=== PATIENT | female | born 1950 | race Caucasian/White ===

== ENCOUNTER 2019-06-13 19:42 | Inpatient (IN) | payer OTHER, MEDICARE ==
[2019-06-13 20:04] VITALS: BMI 23.6
--- NOTE | 2019-06-13 20:04 | PDOC ---
History of Present Illness - General Chief Complaint: Lightheaded Stated Complaint: DIZZINESS Time Seen by Provider: 06/13/19 20:03 History Source: Patient Exam Limitations: No Limitations - History of Present Illness Initial Comments: 06/13/19 20:06 Flores Haji is a 68yF with PMHx of Alzheimers and hyperlipidemia presenting with lightheadedness. AT 530p today, while sitting in chair and watching TV, she suddenly felt lightheaded and nauseous. Went to bathroom, did not vomit. No fall, LOC, head trauma. Never has felt like this before. Currently in ED, she feels back to normal. Denies lightheadedness, nausea, headache, SOB, chest/AB pain, urinary or bowel mvmt changes. Past History - Past Medical History Allergies/Adverse Reactions: Allergies Allergy/AdvReac Type Severity Reaction Status Date / Time No Known Allergies Allergy Verified 06/13/19 20:13 Home Medications: Ambulatory Orders Donepezil HCl [Aricept -] 10 mg PO HS 06/13/19 Simvastatin [Zocor -] 40 mg PO HS 06/13/19 Review of Systems - Review of Systems Able to Perform ROS?: Yes Is the patient limited Yakut proficient: No Constitutional: No: Chills, Fever HEENTM: No: Eye Pain, Nose Pain, Nose Congestion, Throat Pain Respiratory: No: Cough, Shortness of Breath Cardiac (ROS): No: Chest Pain, Edema, Palpitations, Syncope ABD/GI: No: Abdominal Distended, Constipated, Diarrhea, Nausea, Vomiting : No: Burning, Dysuria, Discharge, Flank Pain, Hematuria, Incontinence Musculoskeletal: No: Back Pain, Joint Pain, Muscle Pain, Neck Pain Integumentary: No: Bruising, Erythema, Flushing, Lesions Neurological: No: Headache, Numbness, Seizure, Tingling, Tremors Psychiatric: No: Anxiety, Depression Endocrine: No: Excessive Sweating, Flushing, Intolerance to Cold, Intolerance to Heat Hematologic/Lymphatic: No: Anemia, Blood Clots, Easy Bleeding *Physical Exam - Physical Exam General Appearance: Yes: Nourished, Appropriately Dressed. No: Apparent Distress HEENT: positive: EOMI, YESSI, Normal Voice, Hearing Grossly Normal. negative: Pale Conjunctivae, Excessive drooling Neck: positive: Trachea midline, Normal Thyroid, Supple, Other (full neck ROM). negative: Tender, Rigid Respiratory/Chest: positive: Lungs Clear, Normal Breath Sounds. negative: Chest Tender, Respiratory Distress, Crackles, Rales, Rhonchi, Stridor, Wheezing Cardiovascular: positive: Regular Rhythm, Regular Rate, S1, S2. negative: Edema , Murmur Gastrointestinal/Abdominal: positive: Normal Bowel Sounds, Flat, Soft. negative : Tender, Organomegaly, Distended, Guarding, Rebound, Mass Neurologic: positive: oil mixer II-XII NML intact, Fully Oriented, Alert, Normal Mood/ Affect, Normal Response, Motor Strength 5/5, Responsive. negative: Facial Droop , Numbness, Sensory Deficit, Disoriented, Depressed Affect Medical Decision Making - Medical Decision Making 06/13/19 20:39 CBC CMP trop CXR EKG UA head CT Flores Detz is a 68yF with PMHx of Alzheimers and hyperlipidemia presenting with lightheadedness. Consider cardiac causes based on advanced age, HLD risk factor. Unlikely stroke/TIA based on normal neuro exam. Plan to admit for syncope workup in setting of advanced age, dementia pending head CT, labs. Signed out to Dr. Anderson Johns. *DC/Admit/Observation/Transfer Diagnosis at time of Disposition: Lightheadedness - Discharge Dispostion Condition at time of disposition: Stable - Referrals - Patient Instructions - Post Discharge Activity
[2019-06-13 22:40] LABS: BASO % 0.4 % (0-2.0); EOS % 0.3 % (0-4.5); HEMATOCRIT 41.4 % (32.4-45.2); HEMOGLOBIN 14.1 GM/dL (10.7-15.3); LYMPH % 12.7 % (8-40); MCH 30.5 pg (25.7-33.7); MCHC 34.1 g/dl (32.0-36.0); MEAN CELL VOLUME 89.4 fl (80-96); MEAN PLT VOLUME 8.7 fl (7.5-11.1); MONO % 3.1 % (3.8-10.2); NEUT % 83.5 % (42.8-82.8); PLATELET COUNT 208 K/MM3 (134-434); RBC 4.64 M/mm3 (3.60-5.2); RDW 12.7 % (11.6-15.6); WHITE BLOOD COUNT 6.4 K/mm3 (4.0-10.0)
[2019-06-13 23:01] LABS: ALBUMIN 3.8 g/dl (3.4-5.0); BILIRUBIN,TOTAL 0.5 mg/dL (0.2-1); BLOOD UREA NITROGEN 16.1 mg/dL (7-18); CALCIUM 9.2 mg/dL (8.5-10.1); CREATININE 0.6 mg/dL (0.55-1.3); POTASSIUM 3.8 mmol/L (3.5-5.1); TOT PROT 7.2 g/dl (6.4-8.2)
--- NOTE | 2019-06-13 23:14 | PDOC ---
*Physical Exam - Vital Signs Last Vital Signs Temp Pulse Resp BP Pulse Ox 96.9 F L 68 18 125/81 99 06/13/19 20:00 06/13/19 20:00 06/13/19 20:00 06/13/19 20:00 06/13/19 20:00 - Physical Exam Comments: 06/13/19 23:13 GENERAL: Awake, alert, and fully oriented, in no acute distress HEAD: No signs of trauma, normocephalic, atraumatic EYES: PERRLA, EOMI, sclera anicteric, conjunctiva clear ENT: Auricles normal inspection, hearing grossly normal, nares patent, oropharynx clear without exudates. Moist mucosa NECK: Normal ROM, supple, no lymphadenopathy, JVD, or masses LUNGS: No distress, speaks full sentences, clear to auscultation bilaterally HEART: Regular rate and rhythm, normal S1 and S2, no murmurs, rubs or gallops, peripheral pulses normal and equal bilaterally. ABDOMEN: Soft, nontender, normoactive bowel sounds. No guarding, no rebound. No masses EXTREMITIES : Normal inspection, Normal range of motion, no edema. No clubbing or cyanosis. NEUROLOGICAL: Cranial nerves II through XII grossly intact. Normal speech, normal gait, no focal sensorimotor deficits SKIN: Warm, Dry, normal turgor, no rashes or lesions noted Heart Score/ECG Review - History History: Slightly suspicious - Electrocardiogram EKG: Normal - Age Age: >/= 65 - Risk Factors Risk Factors Heart Score: Yes Hx Hypercholesterolemia, Yes Positive family hx of cardiac disease Based on the list above the patient has:: >/=3 risk factors or Hx atherosclerotic disease - Troponin Troponin: </= normal limit - Score Heart Score - Total: 4 ED Treatment Course - LABORATORY CBC & Chemistry Diagram: 06/13/19 22:20 06/13/19 22:20 - ADDITIONAL ORDERS Additional order review: Laboratory Results 06/13/19 06/13/19 22:20 22:20 Sodium 142 Potassium 3.8 Chloride 106 Carbon Dioxide 29 Anion Gap 7 L BUN 16.1 Creatinine 0.6 Est GFR (CKD-EPI)AfAm 107.79 Est GFR (CKD-EPI)NonAf 93.00 Random Glucose 120 H Calcium 9.2 Total Bilirubin 0.5 AST 19 ALT 20 Alkaline Phosphatase 78 Creatine Kinase 68 Troponin I < 0.02 Total Protein 7.2 Albumin 3.8 06/13/19 22:20 RBC 4.64 MCV 89.4 MCHC 34.1 RDW 12.7 MPV 8.7 Neutrophils % 83.5 H Lymphocytes % 12.7 Monocytes % 3.1 L Eosinophils % 0.3 Basophils % 0.4 - RADIOLOGY Radiology Studies Ordered: Category Date Time Status CERVICAL SPINE CT W/O CONTR [CT] Stat CT Scan 06/13/19 22:51 Ordered 06/14/19 02:08 No acute fracture or malalignment. Minimal spondylosis. Straightening of cervical lordosis, possibly due to positioning or muscle spasm. CTH: No acute brain parenchymal abnormality. No hemorrhage or acute territorial infarct. 4 mm dural calcification or incidental calcified meningioma overlying left parietal lobe. Age-related involutional changes. Clear visualized paranasal sinuses. Visualized mastoid air cells clear. 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 Possible LOC, collpase. Patient poor historian. Endorsed by Dr. Deal. Vitals wnl, AF, A&Ox3. Physical exam unremarkable. CTH r/o hemmorhage, hematoma, fracture. Pending CT-spine. Pending labs, UA. Ed Course: 06/13/19 23:14 EKG: NSR with absent DORIS, STD. Nml interval duration and axis. Nml R wave progression. Absent Q waves. 06/14/19 01:43 Laboratory Tests 06/13/19 06/13/19 06/13/19 00:50 22:20 22:20 WBC 6.4 Hgb 14.1 Hct 41.4 Plt Count 208 Sodium Potassium BUN Creatinine Random Glucose Troponin I < 0.02 Urine Color Yellow Urine Appearance Clear Urine Nitrite Negative Urine Urobilinogen 0.2 Ur Leukocyte Esterase 1+ H Urine WBC (Auto) 4 06/13/19 22:20 WBC Hgb Hct Plt Count Sodium 142 Potassium 3.8 BUN 16.1 Creatinine 0.6 Random Glucose 120 H Troponin I Urine Color Urine Appearance Urine Nitrite Urine Urobilinogen Ur Leukocyte Esterase Urine WBC (Auto) 06/14/19 02:00 CTH, C-spine: No acute findings 06/14/19 02:[address] Grayson. Admitted tele *DC/Admit/Observation/Transfer Diagnosis at time of Disposition: Lightheadedness, Syncope and collapse - Discharge Dispostion Condition at time of disposition: Stable Decision to Admit order: Yes - Referrals - Patient Instructions - Post Discharge Activity
--- NOTE | 2019-06-14 01:06 | PDOC ---
Documentation entered by Rafaela Valerio SCRIBE, acting as scribe for Christi Tompkins DO. Christi Tompkins DO: This documentation has been prepared by the Iman jean-baptiste Adrianna, SCRIBE, under my direction and personally reviewed by me in its entirety. I confirm that the documentation accurately reflects all work, treatment, procedures, and medical decision making performed by me. Attending Attestation - Resident Resident Name: SarathChung - ED Attending Attestation I have performed the following: I have examined & evaluated the patient, The case was reviewed & discussed with the resident, I agree w/resident's findings & plan - HPI HPI: The patient is a 68 year old female, with a significant PMH of Alzheimers and HLD, who presents to the ED for evaluation of lightheadedness for a few hours. Patient was sitting watching TV 3 hours ago, when she began to experience sudden onset lightheadedness and nausea. Patient cannot recall the event, and is unsure if she lost consciousness. Unclear history as patient is a poor historian. She endorses left-sided head pain while in the ED. Allergies: NKA, NKDA Surgical History: None reported Social History: Alzheimers. Denies EtOH, tobacco, or illicit drug use - Physicial Exam PE: GENERAL: Awake, in no acute distress HEAD: No signs of trauma EYES: ENT:clear without exudates. Moist mucosa NECK: Normal ROM, LUNGS:. Normal work of breathing. HEART: Regular rate and rhythm, ABDOMEN: Soft, nondistended CHEST WALL: BACK: No midline tenderness. EXTREMITIES:. No erythema, or tenderness NEUROLOGICAL: Alert, SKIN: Warm, Dry - Medical Decision Making 06/14/19 01:05 68-year-old female status post probable syncopal episode Plan for CT scan of the brain, troponin EKG and observation admission to hospitalist service
[2019-06-14 01:07] LABS: EPI CELLS 0.7 /HPF (0-5/HPF); HYALINE CASTS 0 /lpf (0-8); URINE APPEARANCE CLEAR; URINE BACTERIA 50.1 /hpf (NEGATIVE); URINE BILIRUBIN NEGATIVE (NEGATIVE); URINE COLOR YELLOW; URINE GLUCOSE (UA) NEGATIVE (NEGATIVE); URINE KETONE NEGATIVE (NEGATIVE); URINE LEUK ESTERASE 1+ (NEGATIVE); URINE NITRITE NEGATIVE (NEGATIVE); URINE PROTEIN NEGATIVE (NEGATIVE); URINE RBC 3 /hpf (0-4); URINE UROBILINOGEN 0.2 mg/dL (0.2-1.0); URINE WBC 4 /hpf (0-5)
--- NOTE | 2019-06-14 02:14 | PN ---
Teaching Attending Note Name of Resident: Althea Lara ATTENDING PHYSICIAN STATEMENT I saw and evaluated the patient. I reviewed the resident's note and discussed the case with the resident. I agree with the resident's findings and plan as documented. SUBJECTIVE: Patient is a 68 year old woman with PMH of Alzheimer's dementia and Hyperlipidemia presenting with lightheadedness. At 5:30 pm today while sitting in chair and watching TV, she suddenly felt lightheaded and nauseous. Went to bathroom, did not vomit. No fall, loss of consciousness or head trauma. Never has felt like this before. Currently in ER, she feels back to normal. Denies lightheadedness, nausea, headache, SOB, chest pain, abdominal pain, changes in urinary or bowel function. OBJECTIVE: Alert and not orthostatic Vital Signs Period Temp Pulse Resp BP Sys/Hall Pulse Ox Last 24 Hr 96.9 F-97.4 F 68-69 18 125-135/81-86 99-100 HEENT: No Jaundice, eye redness or discharge, PERRLA, EOMI. Normocephalic, atraumatic. External ears are normal and hearing is grossly intact. No nasal discharge. Neck: Supple, nontender. No palpable adenopathy or thyromegaly. No JVD Chest: Good effort. Clear to auscultation and percussion. Heart: Regular. No S3, rub or murmur Abdomen: Not distended, soft, nontender and no HSM. No rebound or guarding. Normal bowel sounds. Ext: Peripheral pulses intact. No leg edema. Skin: Warm and dry. No petechiae, rash or ecchymosis. Neuro: Alert. Oriented x3. CN 2-12 grossly intact. Sensation grossly intact in all four extremities and DTR are symmetric. Psych: Appropriate mood and affect. Good insight. Home Medications Medication Instructions Recorded Donepezil HCl [Aricept -] 10 mg PO HS 06/13/19 Simvastatin [Zocor -] 40 mg PO HS 06/13/19 Abnormal Lab Results 06/13/19 06/13/19 06/13/19 00:50 22:20 22:20 Neutrophils % 83.5 H Monocytes % 3.1 L Anion Gap 7 L Random Glucose 120 H Ur Specific [place] 1.008 L Ur Leukocyte Esterase 1+ H ASSESSMENT AND PLAN: 1. Syncope - Details surrounding the episode are uncertain, but it is unclear if he lost consciousness. Etiology unclear. No acute pathology on noncontrast head CT scan, C-spine CT or CXR. No significant changes on EKG. Admit to telemetry, get brain MRI, HbA1c, lumbosacral MRI, carotid doppler, ECHO and consult Neurology. Will do neurochecks and implement seizure, fall and aspiration precautions. 2. DVT prophylaxis - Lovenox 40 mg SQ q 24 hours. 3. Advance directives - Full code
[2019-06-14] MEDS: SODIUM CHLORIDE 1,000 ML IV SCH (03:05)
--- NOTE | 2019-06-14 04:52 | HP ---
CHIEF COMPLAINT: syncope PCP: Lucius HISTORY OF PRESENT ILLNESS: Ms. Haji is a 68yo female with Alzheimer's diagnosed 3 months ago and HLD presents with unwitnessed syncope. She reports feeling nauseous while sitting and watching TV, got up to go to the bathroom, and remembers being on the floor. She denies prodromal symptoms. She said her son called her and she happened to have her phone with her, so she was able to inform him of the incident. She is unsure how long she was on the floor. She denies head injury, headache, chest pain, and SOB. She reports no current dizziness and nausea. 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 Family History: none Allergies No Known Allergies Allergy (Verified 06/13/19 20:13) HOME MEDICATIONS: Home Medications Medication Instructions Recorded Donepezil HCl [Aricept -] 10 mg PO HS 06/13/19 Simvastatin [Zocor -] 40 mg PO HS 06/13/19 REVIEW OF SYSTEMS CONSTITUTIONAL: Absent: fever, chills, diaphoresis, generalized weakness, loss of appetite HEENT: Absent: rhinorrhea, nasal congestion, throat pain, ear pain CARDIOVASCULAR: Present: syncope Absent: chest pain, palpitations, irregular heart rate, peripheral edema RESPIRATORY: Absent: cough, shortness of breath GASTROINTESTINAL: Absent: abdominal pain, abdominal distension, nausea, vomiting GENITOURINARY: Absent: dysuria MUSCULOSKELETAL: Absent: myalgia SKIN: Absent: rash, itching, pallor HEMATOLOGIC/IMMUNOLOGIC: Absent: easy bleeding, easy bruising, lymphadenopathy, frequent infections ENDOCRINE: Absent: unexplained weight gain, unexplained weight loss, heat intolerance, cold intolerance NEUROLOGIC: Absent: headache, focal weakness or paresthesias, dizziness, unsteady gait, seizure, mental status changes, bladder or bowel incontinence PSYCHIATRIC: Absent: anxiety, depression, suicidal or homicidal ideation, hallucinations. PHYSICAL EXAMINATION Vital Signs - 24 hr 06/13/19 06/14/19 06/14/19 20:00 02:45 03:53 Temperature 96.9 F L 97.7 F 98 F Pulse Rate 69 74 Pulse Rate [ 62 Apical] Pulse Rate [ 68 Right Radial] Respiratory 18 15 20 Rate Blood Pressure 135/86 112/70 Blood Pressure 125/81 134/79 [Right Arm] O2 Sat by Pulse 99 100 98 Oximetry (%) 06/14/19 04:16 Temperature 97.8 F Pulse Rate 78 Pulse Rate [ Apical] Pulse Rate [ Right Radial] Respiratory 20 Rate Blood Pressure 112/70 Blood Pressure [Right Arm] O2 Sat by Pulse Oximetry (%) GENERAL: Awake, alert, and fully oriented, in no acute distress. Intermittent confusion with questions. HEAD: Normal with no signs of trauma. EYES: Pupils equal, round and reactive to light, extraocular movements intact, sclera anicteric, conjunctiva clear. No lid lag. EARS, NOSE, THROAT: Ears normal, nares patent. Moist mucous membranes. NECK: Normal range of motion, supple without lymphadenopathy, JVD, or masses. LUNGS: Breath sounds equal, clear to auscultation bilaterally. No wheezes, and no crackles. No accessory muscle use. HEART: Regular rate and rhythm, normal S1 and S2 without murmur, rub or gallop. ABDOMEN: Soft, nontender, not distended, normoactive bowel sounds, no guarding, no rebound, no masses. No hepatomegaly or splenomegaly. MUSCULOSKELETAL: Normal range of motion at all joints. No bony deformities or tenderness. UPPER EXTREMITIES: 2+ pulses, warm, well-perfused. No cyanosis. No clubbing. No peripheral edema. LOWER EXTREMITIES: 2+ pulses, warm, well-perfused. No calf tenderness. No peripheral edema. NEUROLOGICAL: Cranial nerves II-XII intact. Normal speech. Normal gait. PSYCHIATRIC: Cooperative. Good eye contact. Appropriate mood and affect. SKIN: Warm, dry, normal turgor, no rashes or lesions noted, normal capillary refill. Laboratory Results - last 24 hr 06/13/19 06/13/19 06/13/19 00:50 22:20 22:20 WBC 6.4 RBC 4.64 Hgb 14.1 Hct 41.4 MCV 89.4 MCH 30.5 MCHC 34.1 RDW 12.7 Plt Count 208 MPV 8.7 Absolute Neuts (auto) 5.4 Neutrophils % 83.5 H Lymphocytes % 12.7 Monocytes % 3.1 L Eosinophils % 0.3 Basophils % 0.4 Nucleated RBC % 0 Sodium Potassium Chloride Carbon Dioxide Anion Gap BUN Creatinine Est GFR (CKD-EPI)AfAm Est GFR (CKD-EPI)NonAf Random Glucose Calcium Total Bilirubin AST ALT Alkaline Phosphatase Creatine Kinase 68 Troponin I < 0.02 Total Protein Albumin Urine Color Yellow Urine Appearance Clear Urine pH 8.0 Ur Specific [place] 1.008 L Urine Protein Negative Urine Glucose (UA) Negative Urine Ketones Negative Urine Blood Negative Urine Nitrite Negative Urine Bilirubin Negative Urine Urobilinogen 0.2 Ur Leukocyte Esterase 1+ H Urine WBC (Auto) 4 Urine RBC (Auto) 3 Urine Casts (Auto) 0 U Epithel Cells (Auto) 0.7 Urine Bacteria (Auto) 50.1 06/13/19 22:20 WBC RBC Hgb Hct MCV MCH MCHC RDW Plt Count MPV Absolute Neuts (auto) Neutrophils % Lymphocytes % Monocytes % Eosinophils % Basophils % Nucleated RBC % Sodium 142 Potassium 3.8 Chloride 106 Carbon Dioxide 29 Anion Gap 7 L BUN 16.1 Creatinine 0.6 Est GFR (CKD-EPI)AfAm 107.79 Est GFR (CKD-EPI)NonAf 93.00 Random Glucose 120 H Calcium 9.2 Total Bilirubin 0.5 AST 19 ALT 20 Alkaline Phosphatase 78 Creatine Kinase Troponin I Total Protein 7.2 Albumin 3.8 Urine Color Urine Appearance Urine pH Ur Specific [place] Urine Protein Urine Glucose (UA) Urine Ketones Urine Blood Urine Nitrite Urine Bilirubin Urine Urobilinogen Ur Leukocyte Esterase Urine WBC (Auto) Urine RBC (Auto) Urine Casts (Auto) U Epithel Cells (Auto) Urine Bacteria (Auto) ASSESSMENT/PLAN: The patient is a 68yo female with newly diagnosed Alzheimer's disease as well as HLD who presents after an unwitnessed syncope. She reports her dizziness and nausea have resolved. 1. syncope- Event was unwitnessed. CBC and CMP are negative. Pt is afebrile and orthostatic negative. CT head was negative for acute processes. Trop x2 negative. UA showed +1 leuk esterase only. -HbA1C- BG isolated elevation at 120 -TSH -MRI brain -echo -carotid doppler -NS 50mL/hr -consider EEG -consider neuro consult 2. Alzheimer's 3. HLD DVT ppe Lovenox 40mg Q daily FEN NS 50mL/hr regular diet monitor electrolytes Visit type - Emergency Visit Emergency Visit: Yes ED Registration Date: 06/13/19 Care time: The patient presented to the Emergency Department on the above date and was hospitalized for further evaluation of their emergent condition. - New Patient This patient is new to me today: Yes Date on this admission: 06/14/19 - Critical Care Critical Care patient: No ATTENDING PHYSICIAN STATEMENT I saw and evaluated the patient. I reviewed the resident's note and discussed the case with the resident. I agree with the resident's findings and plan as documented. SUBJECTIVE: OBJECTIVE: ASSESSMENT AND PLAN:
[2019-06-14 06:50] LABS: BASO % 0.4 % (0-2.0); EOS % 1.4 % (0-4.5); HEMATOCRIT 38.1 % (32.4-45.2); HEMOGLOBIN 13.3 GM/dL (10.7-15.3); MCH 30.9 pg (25.7-33.7); MCHC 34.9 g/dl (32.0-36.0); MEAN CELL VOLUME 88.5 fl (80-96); MEAN PLT VOLUME 8.6 fl (7.5-11.1); MONO % 8.9 % (3.8-10.2); NEUT % 63.3 % (42.8-82.8); PLATELET COUNT 203 K/MM3 (134-434); RBC 4.31 M/mm3 (3.60-5.2); RDW 12.4 % (11.6-15.6); WHITE BLOOD COUNT 5.5 K/mm3 (4.0-10.0)
[2019-06-14 07:18] LABS: ALBUMIN 3.4 g/dl (3.4-5.0); ALK PHOS 68 U/L (45-117); ANION GAP 5 MMOL/L (8-16); BILIRUBIN,TOTAL 0.3 mg/dL (0.2-1); CALCIUM 8.8 mg/dL (8.5-10.1); CHLORIDE 107 mmol/L (98-107); CO2 30 mmol/L (21-32); CREATININE 0.6 mg/dL (0.55-1.3); GLUCOSE,RANDOM 85 mg/dL (74-106); MAGNESIUM 2.4 mg/dL (1.8-2.4); POTASSIUM 3.9 mmol/L (3.5-5.1); SGOT/AST 16 U/L (15-37); SGPT/ALT 19 U/L (13-61); SODIUM 141 mmol/L (136-145); TOT PROT 6.3 g/dl (6.4-8.2)
--- NOTE | 2019-06-14 08:22 | EKG ---
Test Reason : Blood Pressure : / mmHG Vent. Rate : 067 BPM Atrial Rate : 067 BPM P-R Int : 138 ms QRS Dur : 084 ms QT Int : 414 ms P-R-T Axes : 068 060 055 degrees QTc Int : 437 ms NORMAL SINUS RHYTHM NORMAL ECG NO PREVIOUS ECGS AVAILABLE Confirmed by LYLA IRVIN, DARIO ([id number]) on 06/14/2019 8:21:58 AM Referred By: Confirmed By:DARIO ARITA MD
[2019-06-14] MEDS: ENOXAPARIN NA (PORCINE) 40 MG/0.4 ML DISP.SYRIN SQ SCH (10:37)
--- NOTE | 2019-06-14 12:43 | ECHO ---
Name: DETZ, LIV Exam:Adult Echocardiogram Study Date: 06/14/2019 10:42 AM Age: 68 yrs Reason For Study: possible syncope Height: 59 in Weight: 117 lb BSA: 1.5 m2 MMode/2D Measurements & Calculations IVSd: 0.85 cm Ao root diam: 2.6 cm LVIDd: 3.4 cm LA dimension: 2.3 cm LVIDs: 2.1 cm LVPWd: 0.96 cm LVPWs: 1.3 cm EDV(Teich): 46.9 ml ESV(Teich): 14.9 ml LVOT diam: 1.8 cm Doppler Measurements & Calculations MV E max bernabe: 70.1 cm/sec Ao V2 max: 142.7 cm/sec MV A max bernabe: 89.3 cm/sec Ao max P.2 mmHg MV E/A: 0.78 Ao V2 mean: 92.6 cm/sec MV dec time: 0.21 sec Ao mean P.1 mmHg Ao V2 VTI: 30.8 cm KRISTEN(I,D): 1.7 cm2 KRISTEN(V,D): 1.9 cm2 LV V1 max P.5 mmHg SV(LVOT): 51.0 ml LV V1 mean P.1 mmHg LV V1 max: 106.1 cm/sec LV V1 mean: 67.5 cm/sec LV V1 VTI: 20.4 cm TR max bernabe: 210.7 cm/sec PA V2 max: 91.2 cm/sec TR max P.8 mmHg PA max P.3 mmHg Med Peak E' Bernabe: 7.1 cm/sec Med E/e': 9.8 Lat Peak E' Bernabe: 8.2 cm/sec Lat E/e': 8.5 Procedure A two-dimensional transthoracic echocardiogram with color flow and Doppler was performed. Left Ventricle The left ventricular size, thickness and function are normal. The left ventricular ejection fraction is normal. The transmitral spectral Doppler flow pattern is normal for age. The left ventricular wall mo tion is normal. Right Ventricle The right ventricle is normal in size and function. Atria Normal left and right atrial size and function. Mitral Valve There is mild mitral valve thickening. There is no mitral valve stenosis. There is trace to mild mitr al regurgitation. Tricuspid Valve The tricuspid valve is normal in structure and function. There is no tricuspid stenosis. There is mil d to moderate tricuspid regurgitation. Right ventricular systolic pressure is normal. Aortic Valve The aortic valve is normal in structure and function. No hemodynamically significant valvular aortic stenosis. No aortic regurgitation is present. Pulmonic Valve The pulmonic valve is not well visualized. There is no pulmonic valvular stenosis. Mild to moderate p ulmonic valvular regurgitation. Great Vessels The aortic root is normal size. Pericardium/Pleura There is no pericardial effusion. Interpretation Summary There is mild to moderate tricuspid regurgitation. Right ventricular systolic pressure is normal. The transmitral spectral Doppler flow pattern is normal for age. The left ventricular size, thickness and function are normal The left ventricular ejection fraction is normal. The left ventricular wall motion is normal. MD Asa Remy 06/14/2019 12:42 PM
--- NOTE | 2019-06-14 13:09 | EKG ---
Test Reason : Blood Pressure : / mmHG Vent. Rate : 065 BPM Atrial Rate : 065 BPM P-R Int : 138 ms QRS Dur : 084 ms QT Int : 430 ms P-R-T Axes : 070 062 056 degrees QTc Int : 447 ms NORMAL SINUS RHYTHM NORMAL ECG WHEN COMPARED WITH ECG OF 13-JUN-2019 21:59, NO SIGNIFICANT CHANGE WAS FOUND Confirmed by DARIO ARITA MD ([id number]) on 06/14/2019 1:08:24 PM Referred By: Confirmed By:DARIO ARITA MD
--- NOTE | 2019-06-14 13:55 | PN ---
Physical Exam: SUBJECTIVE: Patient seen and examined by the bedside. She is well oriented and cooperative. OBJECTIVE: Vital Signs Period Temp Pulse Resp BP Sys/Hall Pulse Ox Last 24 Hr 96.9 F-98 F 62-78 15-20 112-135/70-86 98-100 GENERAL: The patient is awake, alert, and fully oriented, in no acute distress. HEAD: Normal with no signs of trauma. EYES: PERRL, extraocular movements intact, sclera anicteric, conjunctiva clear. No ptosis. NECK: Trachea midline, full range of motion, supple. LUNGS: Breath sounds equal, clear to auscultation bilaterally, no wheezes, no crackles, no accessory muscle use. HEART: Regular rate and rhythm, S1, S2 without murmur, rub or gallop. ABDOMEN: Soft, nontender, nondistended, normoactive bowel sounds, no guarding, no rebound, no hepatosplenomegaly, no masses. EXTREMITIES: 2+ pulses, warm, well-perfused, no edema. NEUROLOGICAL:Normal speech, gait not observed. PSYCH: Normal mood, normal affect. SKIN: Warm, dry, normal turgor, no rashes or lesions noted Laboratory Results - last 24 hr 06/13/19 06/13/19 06/13/19 00:50 22:20 22:20 WBC 6.4 RBC 4.64 Hgb 14.1 Hct 41.4 MCV 89.4 MCH 30.5 MCHC 34.1 RDW 12.7 Plt Count 208 MPV 8.7 Absolute Neuts (auto) 5.4 Neutrophils % 83.5 H Lymphocytes % 12.7 Monocytes % 3.1 L Eosinophils % 0.3 Basophils % 0.4 Nucleated RBC % 0 Sodium Potassium Chloride Carbon Dioxide Anion Gap BUN Creatinine Est GFR (CKD-EPI)AfAm Est GFR (CKD-EPI)NonAf Random Glucose Calcium Magnesium Total Bilirubin AST ALT Alkaline Phosphatase Creatine Kinase 68 Troponin I < 0.02 Total Protein Albumin TSH Urine Color Yellow Urine Appearance Clear Urine pH 8.0 Ur Specific Hope 1.008 L Urine Protein Negative Urine Glucose (UA) Negative Urine Ketones Negative Urine Blood Negative Urine Nitrite Negative Urine Bilirubin Negative Urine Urobilinogen 0.2 Ur Leukocyte Esterase 1+ H Urine WBC (Auto) 4 Urine RBC (Auto) 3 Urine Casts (Auto) 0 U Epithel Cells (Auto) 0.7 Urine Bacteria (Auto) 50.1 06/13/19 06/14/19 06/14/19 22:20 06:00 06:00 WBC 5.5 RBC 4.31 Hgb 13.3 Hct 38.1 MCV 88.5 MCH 30.9 MCHC 34.9 RDW 12.4 Plt Count 203 MPV 8.6 Absolute Neuts (auto) 3.5 Neutrophils % 63.3 D Lymphocytes % 26.0 D Monocytes % 8.9 D Eosinophils % 1.4 D Basophils % 0.4 Nucleated RBC % 0 Sodium 142 141 Potassium 3.8 3.9 Chloride 106 107 Carbon Dioxide 29 30 Anion Gap 7 L 5 L BUN 16.1 13.0 Creatinine 0.6 0.6 Est GFR (CKD-EPI)AfAm 107.79 107.79 Est GFR (CKD-EPI)NonAf 93.00 93.00 Random Glucose 120 H 85 Calcium 9.2 8.8 Magnesium 2.4 Total Bilirubin 0.5 0.3 AST 19 16 ALT 20 19 Alkaline Phosphatase 78 68 Creatine Kinase 60 Troponin I < 0.02 Total Protein 7.2 6.3 L Albumin 3.8 3.4 TSH 0.77 Urine Color Urine Appearance Urine pH Ur Specific Hope Urine Protein Urine Glucose (UA) Urine Ketones Urine Blood Urine Nitrite Urine Bilirubin Urine Urobilinogen Ur Leukocyte Esterase Urine WBC (Auto) Urine RBC (Auto) Urine Casts (Auto) U Epithel Cells (Auto) Urine Bacteria (Auto) Active Medications Generic Name Dose Route Start Last Admin Trade Name Freq PRN Reason Stop Dose Admin Enoxaparin Sodium 40 mg 06/14/19 10:00 06/14/19 10:37 Lovenox - SQ 40 mg DAILY SHARITA Administration Sodium Chloride 1,000 mls @ 50 mls/hr 06/14/19 03:00 06/14/19 03:05 Normal Saline - IV 50 mls/hr ASDIR SHARITA Administration 68 year old female with PMH of Alzheimer's disease (diagnosed 3 months ago) and HLD presents with unwitnessed syncope after feeling nauseated while watching TV. Symptoms resolved by the time she arrived at the ER Supine.......133/69....63 Sitting.......155/60....61 Standing....138/86....66 ASSESSMENT/PLAN: #Syncope -ECHO: Mild/mod TR, mild/mod Pulmonary Regurg, LVF normal -Doppler: PENDING -CT head: no evidence of hemorrhage or infarction -CT C-spine: No evidence of fracture, compression, subluxation, or swelling; mild central spinal canal stenosis -CXR: No acute chest pathology -EKG: NSR, no change compared to EKG done 1 day ago -Tele monitoring -neurochecks and implement seizure, fall and aspiration precautions. #DVT prophylaxis -Lovenox 40 mg Visit type - Emergency Visit Emergency Visit: Yes ED Registration Date: 06/13/19 Care time: The patient presented to the Emergency Department on the above date and was hospitalized for further evaluation of their emergent condition. - New Patient This patient is new to me today: Yes Date on this admission: 06/14/19 - Critical Care Critical Care patient: No - Discharge Referral Referred to [facility] Med P.C.: No ATTENDING PHYSICIAN STATEMENT I saw and evaluated the patient. I reviewed the resident's note and discussed the case with the resident. I agree with the resident's findings and plan as documented. SUBJECTIVE: OBJECTIVE: ASSESSMENT AND PLAN:
--- NOTE | 2019-06-14 15:14 | PN ---
Teaching Attending Note Name of Resident: Sharon Shahid ATTENDING PHYSICIAN STATEMENT I saw and evaluated the patient. I reviewed the resident's note and discussed the case with the resident. I agree with the resident's findings and plan as documented. SUBJECTIVE: denies any pain or SOB. has no fever or chills. denies feeling dizzy or light headed at any point at home. denies palpitations or cp before the event OBJECTIVE: NAd CV: RRR Lungs: CTAB Ext : no edema or erythema Abd:sfot, NT, ND , NL BS Neuro: EOMI, round pupils, no facial droop. tongue at mid ine strength 5/5 in upper and lower extremities. nl sesation . reflexes 2+ knee jerk and biceps b/l ASSESSMENT AND PLAN: 68 y/o lady with h/o HLP, and dementia who presented with a fall and syncope 1- Syncope: No clear etiology yet. Need to r/o arrhythmias. Nl neuro exam, do not suspect stroke. orhtostatic hypotension is still in DDx despite normal Orthostatic VS after IVF in ER. - tele : no events - echo reviewed. - head CT and neck CT reviewed. - No need fro MRI of the brain at this point due to NL neuro exam - might need a holter monitor or prolonged cardiac monitoring after dc 2- dementia and HLP: cont home meds dispo :possible dc home tomorrow am . PT earnestine
[2019-06-14] MEDS ORDERED: ATORVASTATIN CA 10 MG TABLET (FP) PO SCH (22:00)
[2019-06-14] MEDS ORDERED: DONEPEZIL HCL 10 MG TABLET (FP) PO SCH (22:00)
[2019-06-15 07:01] LABS: HEMATOCRIT 36.8 % (32.4-45.2); HEMOGLOBIN 12.6 GM/dL (10.7-15.3); MCH 30.7 pg (25.7-33.7); MCHC 34.3 g/dl (32.0-36.0); MEAN CELL VOLUME 89.4 fl (80-96); MEAN PLT VOLUME 8.6 fl (7.5-11.1); PLATELET COUNT 187 K/MM3 (134-434); RBC 4.11 M/mm3 (3.60-5.2); RDW 12.5 % (11.6-15.6); WHITE BLOOD COUNT 4.8 K/mm3 (4.0-10.0)
[2019-06-15 07:28] LABS: ALBUMIN 3.1 g/dl (3.4-5.0); BILIRUBIN,TOTAL 0.7 mg/dL (0.2-1); BLOOD UREA NITROGEN 13.3 mg/dL (7-18); CALCIUM 8.4 mg/dL (8.5-10.1); CREATININE 0.7 mg/dL (0.55-1.3); POTASSIUM 3.6 mmol/L (3.5-5.1)
[2019-06-15] MEDS: SODIUM CHLORIDE 1,000 ML IV SCH (10:30)
[2019-06-15] MEDS: ENOXAPARIN NA (PORCINE) 40 MG/0.4 ML DISP.SYRIN SQ SCH (10:30)
--- NOTE | 2019-06-15 14:04 | PN ---
Teaching Attending Note Name of Resident: Hussein Wayne ATTENDING PHYSICIAN STATEMENT I saw and evaluated the patient. I reviewed the resident's note and discussed the case with the resident. I agree with the resident's findings and plan as documented. SUBJECTIVE: No fever or chills. No CP or SOB. no dizziness or light headedness. OBJECTIVE: NAD CV: RRR Lungs: CTAB Ext : no edema or erythema ASSESSMENT AND PLAN: 68 y/o lady with h/o HLP, and dementia who presented with a fall and syncope 1- Syncope: No clear etiology yet. need to r.o arrhythmias - tele with no events - will refer to card as out pt for prolonged cardiac monitoring 2- Dementia and HLP: cont home meds dispo Dc home with VNS today . dc instructions to be d/w her son by dr. Wayne
[2019-06-15 15:01] VITALS: BP 141/65; PULSE 65; TEMP 97.9
--- NOTE | 2019-06-15 16:19 | DS ---
Physical Exam: SUBJECTIVE: Patient seen and examined by the bedside. She was seated, well oriented in time and place, and cooperative. OBJECTIVE: Vital Signs Period Temp Pulse Resp BP Sys/Hall Pulse Ox Last 24 Hr 97.8 F-98 F 62-65 18-20 118-141/63-72 98 PHYSICAL EXAM GENERAL: The patient is awake, alert, and fully oriented, in no acute distress. HEAD: Normal with no signs of trauma. EYES: PERRL, extraocular movements intact, sclera anicteric, conjunctiva clear. No ptosis. NECK: Trachea midline, full range of motion, supple. LUNGS: Breath sounds equal, clear to auscultation bilaterally, no wheezes, no crackles, no accessory muscle use. HEART: Regular rate and rhythm, S1, S2 without murmur, rub or gallop. EXTREMITIES: 2+ pulses, warm, well-perfused, no edema. NEUROLOGICAL:Normal speech, gait not observed. PSYCH: Normal mood, normal affect. SKIN: Warm, dry, normal turgor, no rashes or lesions noted LABS Laboratory Results - last 24 hr 06/15/19 06/15/19 06/15/19 06:30 06:30 06:30 WBC 4.8 RBC 4.11 Hgb 12.6 Hct 36.8 MCV 89.4 MCH 30.7 MCHC 34.3 RDW 12.5 Plt Count 187 MPV 8.6 Sodium 143 Potassium 3.6 Chloride 109 H Carbon Dioxide 29 Anion Gap 5 L BUN 13.3 Creatinine 0.7 Est GFR (CKD-EPI)AfAm 102.46 Est GFR (CKD-EPI)NonAf 88.40 Random Glucose 78 Hemoglobin A1c % 4.8 Calcium 8.4 L Total Bilirubin 0.7 AST 16 ALT 18 Alkaline Phosphatase 64 Total Protein 6.0 L Albumin 3.1 L HOSPITAL COURSE: Date of Admission:06/13/19 68 year old female with PMH of Alzheimer's disease (diagnosed 3 months ago) and HLD presents with unwitnessed syncope after feeling nauseated while watching TV. Symptoms resolved by the time she arrived at the ER Supine.......133/69....63 Sitting.......155/60....61 Standing....138/86....66 Date of Discharge: 07/25/19 ECHO showed Mild/mod TR, mild/mod Pulmonary Regurg, LVF normal. Doppler, CT head and spine, and CXR showed no acute pathology. Both EKGs, 1 day apart, showed NSR. She was placed on tele monitoring, neurochecks and seizure, fall and aspiration precautions. Patient was discharged and asked to f/u outpatient with Cardio for Holter monitoring. Minutes to complete discharge: 29 Discharge Summary Reason For Visit: SYNCOPE AND COLLAPSE Condition: Stable - Instructions Diet, Activity, Other Instructions: You were admitted to the hospital because you fell down at home after feeling dizzy and losing consciousness. While you were here, we performed scans of your head (CT head, CT spine and Ultrasound), lungs (Chest X Ray), and heart ( Echocardiogram and EKG). Your scans did not show any abnormalities. While you were admitted, we gave you fluids. Medications: -Please resume ALL of your home meds. Follow up: Please make the following appointments within one week: - With your PCP, Dr. Kan - With your After School Program Coordinator. If you do not have one you should make an appointment with our central sterile tech We would like you to follow up with a central sterile tech to discuss any further testing and to monitor the function of your heart. You will need a prolonged phototypesetting equipment monitor placed Additional Information: Please return to the Emergency Department if you have any of the following: Loss of consciousness, nausea, dizziness, vomiting, shortness of breath, diarrhea, bleeding that will not stop, or persistent headache. Referrals: Jenn Trimble MD [Staff Physician] - 1 Week Sharon Kan MD [Non Staff, Medical] - 1 Week Disposition: VNS/HOME HEALTH CARE - Home Medications Comprehensive Discharge Medication List: Ambulatory Orders Donepezil HCl [Aricept -] 10 mg PO HS 06/13/19 Simvastatin [Zocor -] 40 mg PO HS 06/15/19 This patient is new to me today: No Emergency Visit: Yes ED Registration Date: 06/13/19 Care time: The patient presented to the Emergency Department on the above date and was hospitalized for further evaluation of their emergent condition. Critical Care patient: No - Discharge Referral Referred to [facility] Med P.C.: No ATTENDING PHYSICIAN STATEMENT I saw and evaluated the patient. I reviewed the resident's note and discussed the case with the resident. I agree with the resident's findings and plan as documented. SUBJECTIVE: OBJECTIVE: ASSESSMENT AND PLAN:
== END 2019-06-15 15:13 | disposition home health service (06) | DRG 312 ==
LOC: JER 19:42 → JERBED 23:14 → J4W 06-14 03:30
PROVIDERS: ADMIT Internal Medicine; ATTEND Internal Medicine
DX: R55 Syncope and collapse (principal); E78.5 Hyperlipidemia, unspecified; G30.9 Alzheimer's disease, unspecified; F02.80 Dementia in other diseases classified elsewhere, unspecified severity, without behavioral disturbance, psychotic disturbance, mood disturbance, and anxiety; I36.1 Nonrheumatic tricuspid (valve) insufficiency; I37.1 Nonrheumatic pulmonary valve insufficiency
CPT/HCPCS: 36415; 70450-TC; 71046-TC-FY; 72125-TC; 80053; 81003; 82550; 83036; 83735; 84443; 84484; 85025; 85027; 87086; 93005; 93010; 93306-TC; 93880-TC; 97116-GP; 97161-GP; 99283-25; J7030